=== PATIENT | male | born 1965 | race Caucasian/White ===

== ENCOUNTER 2020-03-07 22:38 | Inpatient (IN) | payer BC, SELFPAY ==
--- NOTE | ~2020-03-07 | XR_ITS ---
EXAMINATION: XR chest 2V EXAM DATE: 03/07/2020 23:13 INDICATION: Chest pain, symptoms 2 days. TECHNIQUE: Frontal and lateral projections of the chest obtained and reviewed. There is no prior eliza dy for comparison. FINDINGS: The lungs are clear. There are no pleural effusions. The cardiomediastinal silhouette is within normal limits. There is no pneumothorax suspected. The bones and soft tissues are unremarkab le. IMPRESSION: No acute cardiopulmonary findings. Reviewed, dictated and finalized at location G.
[2020-03-07 22:44] VITALS: BP 166/106; PULSE 87; RESP 16; TEMP 36.4; O2SAT 100
--- NOTE | 2020-03-07 22:48 | ECG_ITS ---
Measurements Intervals [place] Rate: 83 P: 47 NH: 160 QRS: 69 QRSD: 106 T: 93 QT: 372 QTc: 438 Interpretive Statements SINUS RHYTHM NONSPECIFIC ST & T-WAVE ABNORMALITY- DIFFUSE LEADS BASELINE ARTIFACT- I, II, III, AVR, AVF BORDERLINE ECG Electronically Signed On 03-08-2020 7:16:43 CDT by Pollo Bryan D.O.
[2020-03-07 22:50] VITALS: PULSE 76
--- NOTE | 2020-03-07 22:52 | ED.CHESTPAIN ---
HPI - Chest Pain General Chief Complaint: Chest Pain Stated Complaint: CP Time Seen by Provider: 03/07/20 22:41 History of Present Illness HPI narrative: 54 yo male w/ h/o HTN presents with chest pain. Intermittent for the past 2 days. No radiation. Feels sharp like someone sitting on your chest . No associated symptoms. May be slightly improved by upright position. He has had similar pain in the past after heavy lifting, and does report that he has been moving a lot for the past 2 days. He has not tried anything for his pain. Related Data Home Medications Medication Instructions Recorded Confirmed levocetirizine 5 mg tablet 5 mg PO DAILY 10/25/19 Allergies Allergy/AdvReac Type Severity Reaction Status Date / Time No Known Allergies Allergy Verified 03/07/20 22:53 Review of Systems Review of Systems: All systems reviewed & are unremarkable except as noted in HPI and below Constitutional: Constitutional: Denies chills and Denies fever(s) ENT: Denies dizziness Cardiovascular: Cardiovascular: Reports chest pain and Denies radiating jaw, neck or arm pain Respiratory: Respiratory: Denies dyspnea Gastrointestinal: Gastrointestinal: Denies abdominal pain and Denies nausea Musculoskeletal: Musculoskeletal: Denies back pain Neurologic: Denies dizziness, Denies focal weakness and Reports numbness (bilateral hands) PMFSH Past Medical History Medical History (Updated 03/08/20 @ 00:15 by Rickie Harp MD) HTN (hypertension) Family History Family History Mother Patient's mother is in good health Sibling Patient's sister is in good health Patient's brother is in good health Father Family history of Parkinson's disease Social History Social History Smoking status: Never smoker Second hand tobacco smoke exposure: No Alcohol intake: current Gender identity (if verbalized by the patient): Male Exam Const: General: healthy appearing, no acute distress and alert Nutritional Appearance: well nourished Orientation/consciousness: patient oriented x3 HENMT: Head: normal to inspection Chest: Chest palpation & inspection: normal inspection of the chest and no tenderness Resp: Effort & Inspection: normal respiratory effort Auscultation: clear to auscultation bilaterally Cardio: Rate: regular rate Rhythm: regular rhythm GI: Other: soft , NT Skin: General skin exam: normal color Neuro: General: patient oriented x3, moves all extremities, no focal motor deficits and CN's II-XI intact bilaterally Speech: normal speech Extrem: General: normal to inspection and no edema Course Consultations Consultation #1: Case discussed with Dr. Delacruz. SHe recommends nitropaste, heparin(already started), and admission to the hospitalist. Date: 03/08/20 Time: 00:09 Vital Signs Vital signs: Vital Signs Temperature 36.4 C 03/07/20 22:44 Pulse Rate 87 03/07/20 22:44 Respiratory Rate 16 03/07/20 22:44 Blood Pressure 166/106 H 03/07/20 22:44 Pulse Oximetry 100 03/07/20 22:44 Temperature 36.4 C 03/07/20 22:44 Pulse Rate 79 03/07/20 23:59 Respiratory Rate 16 03/07/20 22:44 Blood Pressure 166/106 H 03/07/20 22:44 Pulse Oximetry 100 03/07/20 22:44 MDM - Chest Pain Differential Diagnosis Differential diagnosis: Likely unstable angina pectoris, atypical chest pain, st elevation myocardial infarction and chest pain Medical Records Data Attestation: I reviewed the patient's medical records. Lab Data Attestation: I reviewed the patient's lab results. Result diagrams: 03/07/20 23:58 03/07/20 22:54 Labs: Lab Results 03/07/20 03/07/20 03/07/20 Range/Units 22:54 22:54 22:54 WBC 7.0 (4.5-10.0) K/mm3 RBC 5.35 (4.6-6.20) M/mm3 Hgb 15.7 (14.0-18.0) g/dL Hct 46.9 (42.0-52.0) % MCV 87.7 (80-100) fl [facility]
[2020-03-07] MEDS: NITROGLYCERIN SL 0.4 MG TABLET SUBLINGUAL (22:58)
[2020-03-07] MEDS: ASPIRIN 81 MG CHEWABLE TABLET 324 MG PO (22:58)
--- NOTE | 2020-03-07 23:01 | PC.NURSE ---
1st nitro given. hr 87 02 97 rr 19 bp 166/106 7/10 pps
[2020-03-07 23:05] LABS: Basophils Percent Auto 0.6 % (0.2-1.2); Eosinophils Absolute Auto 0.2 K/mm3 (0-0.3); Hematocrit 46.9 % (42.0-52.0); Hemoglobin 15.7 g/dL (14.0-18.0); Immature Granulocyte Absolute 0.03 K/mm3 (0.00-0.031); Immature Granulocyte Percent A 0.4 % (0-0.5); Lymphocytes Absolute Auto 2.52 K/mm3 (0.9-3.2); Lymphocytes Percent Auto 36.3 % (18.3-44.2); Mean Corpuscular HGB Conc 33.5 g/dl (32-36); Mean Corpuscular Hemoglobin 29.3 pg (26-34); Mean Corpuscular Volume 87.7 fl (80-100); Mean Platelet Volume 9.5 fl (7.4-10.4); Monocytes Absolute Auto 0.7 K/mm3 (0.1-0.6); Monocytes Percent Auto 10.6 % (2.6-8.5); Neutrophils Absolute Auto 3.4 K/mm3 (1.3-6.7); Neutrophils Percent Auto 49.1 % (45.5-73.1); Platelet Count Result 245 k/mm3 (150-375); Red Blood Count 5.35 M/mm3 (4.6-6.20); Red Cell Distribution Width 12.8 % (11.5-14.5)
--- NOTE | 2020-03-07 23:08 | PC.NURSE ---
could not give 2nd nitro patient in xray
[2020-03-07 23:14] LABS: Prothrombin Time 12.4 Seconds (11.1-14.7)
[2020-03-07 23:15] LABS: Partial Thromboplastin Time 34.2 SECONDS (22.3-36.8)
--- NOTE | 2020-03-07 23:15 | PC.NURSE ---
2nd nitro given hr 79 02 96 rr 15 bp 147/99 2 pps
[2020-03-07 23:17] LABS: Blood Urea Nitrogen 23 mg/dL (9-20); Calcium 9.3 mg/dL (8.4-10.2); Carbon Dioxide 24 mmol/L (22-30); Chloride 103 mmol/L (98-107); Estimated CRCL calculation 105 ml/min; Estimated Glomerular Filt Rate > 60; Glucose 203 mg/dL (75-110); Potassium 4.1 mmol/L (3.4-5.0); Sodium 138 mmol/L (137-145)
--- NOTE | 2020-03-07 23:31 | PC.NURSE ---
3rd Nitro given hr 83 o2 96 rr 17 bp 142/94 2/10 pps
[2020-03-07 23:33] LABS: Troponin I 0.321 ng/mL (0.000-0.034)
[2020-03-07 23:59] VITALS: PULSE 79
[2020-03-07] MEDS: HEPARIN SODIUM 5,000 UNITS/ML VIAL 4000 UNITS IV PUSH (23:59)
[2020-03-07] MEDS: METOPROLOL TARTRATE 50 MG TAB 25 MG PO (23:59)
[2020-03-08] VITALS (33 sets, daily range): BP systolic 95–151; BP diastolic 70–89; PULSE 12–102; RESP 13–97; TEMP 36.1–37.4; O2SAT 90–100; BMI 32.0
[2020-03-08 00:06] LABS: Basophils Percent Auto 0.5 % (0.2-1.2); Eosinophils Absolute Auto 0.2 K/mm3 (0-0.3); Eosinophils Percent Auto 3.1 % (0-4.4); Hematocrit 41.9 % (42.0-52.0); Hemoglobin 14.1 g/dL (14.0-18.0); Immature Granulocyte Absolute 0.02 K/mm3 (0.00-0.031); Immature Granulocyte Percent A 0.3 % (0-0.5); Lymphocytes Absolute Auto 1.53 K/mm3 (0.9-3.2); Lymphocytes Percent Auto 26.7 % (18.3-44.2); Mean Corpuscular HGB Conc 33.7 g/dl (32-36); Mean Corpuscular Hemoglobin 29.3 pg (26-34); Mean Corpuscular Volume 86.9 fl (80-100); Monocytes Absolute Auto 0.6 K/mm3 (0.1-0.6); Monocytes Percent Auto 10.5 % (2.6-8.5); Neutrophils Absolute Auto 3.4 K/mm3 (1.3-6.7); Neutrophils Percent Auto 58.9 % (45.5-73.1); Platelet Count Result 226 k/mm3 (150-375); Red Blood Count 4.82 M/mm3 (4.6-6.20); Red Cell Distribution Width 12.7 % (11.5-14.5); White Blood Count 5.7 K/mm3 (4.5-10.0)
[2020-03-08 00:16] LABS: Prothrombin Time 12.8 Seconds (11.1-14.7)
[2020-03-08 00:17] LABS: Partial Thromboplastin Time 35.4 SECONDS (22.3-36.8)
[2020-03-08] MEDS: NITROGLYCERIN OINTMENT 1 INCH DOSE TRANSDERM (00:28)
[2020-03-08] MEDS: HEPARIN SOD/D5W 100 UNITS/ML 25,000 UNITS/250 ML BAG 10 UNITS IV CONT (00:59)
--- NOTE | 2020-03-08 01:22 | ADMGEN ---
This patient, He Saha, was admitted to IMU Room 200-01. Patient/family oriented to hospital policies and general routines including ID bracelet, bed and alarms, visiting hours, pain management, procedures, bathroom and other care routines, personal items, smoking policy, room service/diet, and visiting hours. Valuables list has been completed. Information on how to activate the Rapid Response Team has been discussed. Patient/Family are encouraged to report perceived risks to care and to ask questions if they do not understand what they are told or what they should do.
--- NOTE | 2020-03-08 01:34 | ADMGEN ---
This patient, He Saha, was admitted to IMU Room 200-01FROM ER 03/08/20 01 0110. Patient/family oriented to hospital policies and general routines including ID bracelet, bed and alarms, visiting hours, pain management, procedures, bathroom and other care routines, personal items, smoking policy, room service/diet, and visiting hours. Valuables list has been completed. Information on how to activate the Rapid Response Team has been discussed. Patient/Family are encouraged to report perceived risks to care and to ask questions if they do not understand what they are told or what they should do.
[2020-03-08 02:43] LABS: Troponin I 0.628 ng/mL (0.000-0.034)
[2020-03-08 04:49] LABS: Basophils Percent Auto 0.5 % (0.2-1.2); Eosinophils Absolute Auto 0.2 K/mm3 (0-0.3); Eosinophils Percent Auto 3.7 % (0-4.4); Hematocrit 41.2 % (42.0-52.0); Hemoglobin 14.1 g/dL (14.0-18.0); Immature Granulocyte Absolute 0.01 K/mm3 (0.00-0.031); Immature Granulocyte Percent A 0.2 % (0-0.5); Lymphocytes Absolute Auto 2.14 K/mm3 (0.9-3.2); Lymphocytes Percent Auto 32.7 % (18.3-44.2); Mean Corpuscular HGB Conc 34.2 g/dl (32-36); Mean Corpuscular Hemoglobin 29.7 pg (26-34); Mean Corpuscular Volume 86.7 fl (80-100); Mean Platelet Volume 9.3 fl (7.4-10.4); Monocytes Absolute Auto 0.6 K/mm3 (0.1-0.6); Monocytes Percent Auto 9.6 % (2.6-8.5); Neutrophils Absolute Auto 3.5 K/mm3 (1.3-6.7); Neutrophils Percent Auto 53.3 % (45.5-73.1); Platelet Count Result 239 k/mm3 (150-375); Red Blood Count 4.75 M/mm3 (4.6-6.20); Red Cell Distribution Width 12.6 % (11.5-14.5); White Blood Count 6.5 K/mm3 (4.5-10.0)
[2020-03-08 04:58] LABS: Hemoglobin A1C 6.6 % (<5.7)
[2020-03-08 05:17] LABS: Troponin I 0.801 ng/mL (0.000-0.034)
[2020-03-08 07:39] LABS: Partial Thromboplastin Time 42.1 SECONDS (22.3-36.8)
[2020-03-08] MEDS: HEPARIN SODIUM 5,000 UNITS/ML VIAL 4000 UNITS IV PUSH (07:55)
--- NOTE | 2020-03-08 08:40 | WPDCN ---
Assessment and Plan Assessment and plan (1) Non-ST elevation SD (NSTEMI): Code(s): I21.4 - Non-ST elevation (NSTEMI) myocardial infarction Status: Acute Assessment and Plan: Patient presents with a history, labs and EKG consistent with ACS/non-STEMI. He is at risk for future cardiovascular events including SD. Reviewed the situation with the patient, high risk of progression to SD etcetera, and discussed options including cardiac catheterization with possible PCI with the patient. Cardiac catheterization with possible PCI today. Reviewed possible risks and complications with patient including breathing problems, bleeding problems, blood vessel problems, unanticipated surgery, allergic reactions, kidney problems, CVA, SD, and among others. Discussed possibility of stenting and possible need for DAPT. Discussed the possibility that if DAPT is interrupted stent thrombosis can occur resulting in heart attack and . Patient understands risks and desires to proceed. (2) HTN (hypertension): Qualifiers: Hypertension type: essential hypertension Qualified Code(s): I10 - Essential (primary) hypertension Code(s): I10 - Essential (primary) hypertension Status: Acute Assessment and Plan: Takes losartan at home, appears controlled (3) Hyperlipidemia: Qualifiers: Hyperlipidemia type: unspecified Qualified Code(s): E78.5 - Hyperlipidemia, unspecified Code(s): E78.5 - Hyperlipidemia, unspecified Status: Acute Assessment and Plan: Taking gemfibrozil. Will check lipids Change to high-dose statin therapy, atorvastatin 40 mg daily (4) Pre-diabetes: Code(s): R73.03 - Prediabetes Status: Acute Assessment and Plan: Blood sugar greater than 200 check A1c HPI Data of Consult Date/Time: 03/08/20 08:40 Requesting Physician: Francie Naranjo DO Primary Care Provider: Shay Stout DO Consult Narrative Narrative: Date of service: 03/08/2020 He Saha is a 54 year old male with a history of hypertension, hyperlipidemia and prediabetes who was admitted with chest discomfort and found to have acute coronary syndrome, whom we were asked to see at the request of Dr. Naranjo for advice and opinion regarding these issues. The patient started having problems 2 days ago. He has been cleaning out his mother and father's house, moving a lot of boxes and furniture and he He had pressure and pain across his chest which would be relieved with sitting and resting. Last night at 10 p.m. he woke up from sleep with pressure and pain, numbness down both arms in sweats. It lasted for about 20 minutes, then eased up and waxed and waned. He came to the emergency room and the discomfort was relieved after TNG x3, nitro paste and being started on a heparin drip. His EKG showed some ST depression of 0.5-1 mm in V3 through V6 and his troponins have reached 0.8. He has had no further chest discomfort. Had some GERD but no bleeding problems or ulcers. Review of Systems Constitutional: Constitutional: Denies weakness Eyes: Eyes: Denies blurry vision ENT: Reports Normal hearing present and Denies epistaxis Cardiovascular: Cardiovascular: Reports chest pain, Reports diaphoresis, Denies lightheadedness and Denies palpitations Respiratory: Respiratory: Denies chest congestion and Denies dyspnea Gastrointestinal: Gastrointestinal: Reports abdominal pain (Infreq GERD), Denies melena, Denies hematochezia and Denies hematemesis Genitourinary: Genitourinary: Denies hematuria Musculoskeletal: Musculoskeletal: Denies back pain and Denies arthralgias Neurologic: Denies confusion and Denies headache(s) Psychiatric: Psychiatric: Denies confusion PMFSH Past Medical History Medical History (Updated 03/08
[2020-03-08] MEDS: ACETAMINOPHEN 325 MG TABLET 650 MG PO ×2 (09:04→19:51)
--- NOTE | 2020-03-08 10:19 | PM.IMHP ---
H&P: HPI History of Present Illness Chief complaint: CP Narrative: Date and Time of History & Physical: March 08, 2020 at 10:00 a.m.. Date and Time of Admission Order: March 08, 2020 at 9:54 a.m.. Chief Complaint: Bilateral chest pain History of Present Illness: He Saha is a 54 year old male with known hypertension, hyperlipidemia, pre diabetes and allergies who presents to the emergency room with at least 2 day history of bilateral upper chest pain. Patient reports he was having episodes of bilateral upper chest pain lasting 2-3 minutes and relieved with rest. He reports pain feeling like pressure followed by dullness. No radiation of pain until last night when he had radiation of pain to both arms. He reports no associated shortness of breath but he did have diaphoresis lasting approximately 20 seconds. No recent fever, chills or sweats. No recent cough. No headache or dizziness. No nausea, vomiting or abdominal pain. No previous history of cardiac issues. Patient does report he has been moving things this past week and initially thought pain was result of this. With continued symptoms, he did present to the emergency room with troponin levels noted to be elevated. Cardiology consulted with patient admitted for further evaluation and treatment. Review of Systems Review of Systems: All systems reviewed & are unremarkable except as noted in HPI and below Constitutional: Constitutional: Denies body ache(s), Denies chills and Denies fever(s) Eyes: Eyes: Denies blurry vision and Denies diplopia ENT: Denies dysphagia and Reports nasal discharge Cardiovascular: Cardiovascular: Reports chest pain, Denies lightheadedness and Denies palpitations Respiratory: Respiratory: Denies dyspnea Gastrointestinal: Gastrointestinal: Denies abdominal pain, Denies nausea and Denies vomiting Genitourinary: Genitourinary: Denies hematuria, Denies dysuria and Denies urinary frequency Musculoskeletal: Musculoskeletal: Denies back pain Integumentary/Breasts: Skin/Breast: Denies rash Neurologic: Denies headache(s) and Denies numbness Psychiatric: Psychiatric: Denies anxiety, Denies confusion and Denies depression Endocrine: Endocrine: Reports no additional endocrine complaints Hematologic/Lymphatic: Hematologic/Lymphatic: Reports no additional hematologic/lymphatic complaints Allergic/Immunologic: Allergic/Immunologic: Reports no additional allergic/immunologic complaints [facility] Past Medical History Medical History (Updated 03/08/20 @ 10:38 by Juani Angulo MD) Allergic rhinitis HTN (hypertension) Hyperlipidemia Pre-diabetes Surgical History Surgical History S/P appendectomy S/P right rotator cuff repair Family History Family History Mother , Per patient, of old age No problems noted. Sibling Patient's brother is in good health Patient's sister is in good health Father Parkinson disease Social History Social History Social History: Patient is . He lives with his . 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 Nonsmoker. Occasional alcohol use. He is a full code. He does not need his as his surrogate decision maker. He does have 1 daughter. 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
--- NOTE | 2020-03-08 10:20 | PC.NURSE ---
Patient to cardiac cardiac catheterization technician.
--- NOTE | 2020-03-08 12:15 | WPDMODSED ---
Moderate Sedation Note-Pt Data Patient Data Allergies Allergy/AdvReac Type Severity Reaction Status Date / Time No Known Allergies Allergy Verified 03/07/20 22:53 Home Medications Medication Instructions Recorded Confirmed Type levocetirizine 5 mg tablet 5 mg PO DAILY 10/25/19 03/08/20 History losartan 100 mg tablet 100 mg PO DAILY #90 tablet 11/23/19 03/08/20 Rx gemfibrozil 600 mg tablet 600 mg PO BID #180 tablet 01/02/20 03/08/20 Rx Current Medications: Active Medications Acetaminophen (Tylenol Tablet) 650 mg PO Q6H PRN PRN Reason: Mild Pain (1-3) or Fever Last Admin: 03/08/20 09:04 Dose: 650 mg Documented by: Atorvastatin Calcium (Lipitor) 40 mg PO DAILY IDRIS Dextrose (Dextrose 50% Syringe) 12.5 gm IV PUSH PRN PRN; Protocol PRN Reason: Hypoglycemia Glucagon (Glucagon For Inj) 1 mg IM PRN PRN; Protocol PRN Reason: Hypoglycemia Glucose (Glutose 15) 15 gm PO PRN PRN; Protocol PRN Reason: Hypoglycemia Heparin Sodium (Porcine) (Heparin Sodium) 4,000 units IV PUSH PRN PRN PRN Reason: aPTT less than 55 seconds Last Admin: 03/08/20 07:55 Dose: 4,000 units Documented by: Heparin Sodium (Porcine) (Heparin Sodium) 4,000 units IV PUSH PRN PRN PRN Reason: aPTT 55 - 70 seconds Heparin Sodium/Dextrose (Heparin Sodium/D5w 100 Units/Ml) 25,000 units in 250 mls @ 0 mls/hr IV CONT .Q0M IDRIS; Protocol Last Titration: 03/08/20 10:04 Dose: 0 units/hr, 0 mls/hr Documented by: Dextrose (Dextrose 5% 1,000 Ml) 1,000 mls @ 100 mls/hr IVPB PRN PRN; Protocol PRN Reason: Hypoglycemia Insulin Aspart (Novolog) 2 - 5 units SUB-Q TIDWM IDRIS; Protocol Loratadine (Claritin) 10 mg PO DAILY IDRIS Losartan Potassium (Cozaar) 100 mg PO DAILY [facility] Sedation/Anesthesia: No previous sedation/anesthesia problems (including family history). [facility] Past Medical History Medical History Allergic rhinitis GERD (gastroesophageal reflux disease) HTN (hypertension) Hyperlipidemia Kidney stone Pre-diabetes Surgical History Surgical History S/P appendectomy S/P right rotator cuff repair Family History Family History Mother , Per patient, of old age No problems noted. Sibling Patient's brother is in good health Patient's sister is in good health Father Parkinson disease Social History Social History Social History: Patient is . He lives with his . 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 Nonsmoker. Occasional alcohol use. He is a full code. He does not need his as his surrogate decision maker. He does have 1 daughter. 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 Gender identity (if verbalized by the patient): Male Spiritual care concerns: No Agree to blood products: Yes Mod Sed Physical Exam Physical Exam Pre Procedural Exam: Normal: Appearance, Eyes, Ears, Nose, Neck, Throat, Airway, Lungs, Heart Size, Heart Rate, Heart Rhythm, Neuro Exam, Abdomen, Liver, Kidneys, Spleen, Breasts, Genitalia, Extremities and Skin Hours since solid foods: 8 Hours since liquid intake: 8 Internal Medicine - PN: Obj Da Vital Signs Vital Signs: Vital Signs - 24 hr 03/07/20 22:44 03/07/20 22:50 03/07/20 23:59 Temperature 36.4 C Pulse Rate 87 76 79 Respiratory Rate 16 Blood Pressure 166/106 H Pulse Oximetry 100 03/08/20 00:37 03/08/20 01:10 03/08/20 01:45 Temperature 36.4 C Pulse Rate 78 75 70 Respiratory Rate 17 20 Blood Pressure 130/87 120/83 Pulse Oximetry 98 99 03/08/20 01:48 03/08/20 03:38 03/08/20 04:00
--- NOTE | 2020-03-08 12:15 | WPDCARDPROC ---
Cardiac Cath Procedure Note Date of procedure:: 03/08/20 Performing physician:: John Alexandre MD date of service: March 08, 2020 Indication:: NSTEMI Brief clinical history:: This is 54-year-old patient with past medical history of obesity, hypertension, hyperlipidemia, prediabetes who presents the hospital with chest pain and was found to have elevated troponins. Was brought into the optical laboratory mechanic to define coronary anatomy. Procedure Procedure performed:: 1-Moderate sedation that started at 10:45 a.m. and ended at 12:05 p.m. total duration 80 minutesusing 3mg of Versed and 75mcg fentanyl. The registered nurse was pat chartrand. 2-Selective left and right coronary angiogram. 3-Left heart catheterization with measurement of LVEDP and measurement of gradient across aortic valve. 4-Right common femoral arterial angiogram. 5- deployment with drug-eluting stent Xience 3.5 x 33 to proximal large OM1 branch reducing stenosis from 99% to 0% and DAVID flow 3 before and after intervention. 6- Deployment of drug-eluting stent 3 x 28 Xience Annie to mid left circumflex artery dressing stenosis from 80% to 0% and DAVID flow 3 before and after intervention. Sedation/Medication given:: Moderate sedation. Access site:: Right common femoral artery. Estimated blood loss:: 10cc Procedure note:: After informed consent patient was brought in to optical laboratory mechanic with the was draped and prepped in usual manner. Moderate sedation was given and the right groin was infiltrated using 1% lidocaine. Five Bangladeshi sheath was obtained using micropuncture needle and the modified Seldinger technique. Selective left coronary angiogram was done using JL4 catheter with the tip of the catheter placed in the left main coronary artery. Selective right coronary angiogram was done using JR4 catheter with the tip of the catheter placed to the right coronary artery. After that 5 Bangladeshi pigtail catheter was advanced across the aortic valve into the left ventricle with measurement of LVEDP and measurement of gradient across aortic valve. Right common femoral arterial angiogram was done. subsequently the 5 Bangladeshi right femoral arterial sheath was exchanged for 6 Bangladeshi sheath over wire. Coronary luge wire 0.04 wire was advanced to distal OM 1 branch. Balloon angioplasty was done using 3 x 20 balloon with inflation under normal pressure for 20 seconds with 2 inflations done. Then after that deploy a drug-eluting stent Xience Annie 3.5 x 33 to proximal and mid left OM branch under nominal pressure for 25 seconds. Post dilatation over the stent was done using 3.5 x 15 noncompliant balloon with inflation under 16 atmospheres in the proximal portion for 25 seconds and inflations at 12 atmospheres in the mid segment for 25 seconds. then after that the coronary luge wire was retrieved and advanced to distal left circumflex artery. Balloon angioplasty of the mid segment was done using 3 by 20 balloon with inflation done and a normal pressure for 20 seconds. Two inflations. Deploy a drug-eluting stent Xience Annie 3 x 28 under normal pressure for 25 seconds. Findings:: 1- left coronary artery is a large artery that divides into large LAD, large circumflex artery. Left main is Free of disease. 2- left anterior descending artery is a large artery that runs and wraps around the apex. has minimal irregularities. Gives rise to a medium-sized diagonal 1 branch and a medium-sized diagonal 2 branch that both have ostial 20% stenosis. 3- left circumflex artery is a large artery. Has minimal irregularities proximally and then in the mid segment has about 70% stenosis. Gives off a large OM1 branch proximally that has mid 99% stenosis. 4- right coronary artery is Large artery and dominant and has minimal irregularities. 5- LVEDP was 18 mm Hgand no gradient across aortic valve. 6- opening arterial pressure was 100/72and closing pressure was 124/75 7- right femoral artery angiogram shows no significant disease in the right common
--- NOTE | 2020-03-08 13:07 | ECG_ITS ---
Measurements Intervals [place] Rate: 74 P: 24 AR: 170 QRS: 68 QRSD: 102 T: 94 QT: 407 QTc: 453 Interpretive Statements SINUS RHYTHM NONSPECIFIC ST & T-WAVE ABNORMALITY- ANTEROLAT/LAT LEADS BORDERLINE ECG Electronically Signed On 03-08-2020 13:24:49 CDT by Pollo Bryan D.O.
--- NOTE | 2020-03-08 14:45 | SUR.PHASEII ---
03/08/20:1445: PATIENT GIVEN 1 LITER OF NS AT 125ML/HR POST PROCEDURE.
--- NOTE | 2020-03-08 14:46 | SUR.PHASEII ---
03/08/20:1447: PATIENT VAGALED DURING SHEATH REMOVAL/MANUAL PRESSURE HOLD. PATIENT WAS DIAPHORETIC, PALE, LIGHTHEADED, BLOOD PRESSURE DECREASED. HEART RATE MAINTAINED. PATIENT WAS PLACED IN [place], FLUIDS WIDE OPEN, COOL CLOTHS UNTIL PATIENT RECOVERED.
--- NOTE | 2020-03-08 16:20 | PC.NURSE ---
patient returned to room following cardiac cath.
[2020-03-08 17:41] LABS: Glucose Point of Care 122 (65-105)
[2020-03-08] MEDS: LOSARTAN POTASSIUM 100 MG TABLET PO (18:11)
[2020-03-08] MEDS: LORATADINE 10 MG TABLET PO (18:12)
[2020-03-08] MEDS: ATORVASTATIN 40 MG TABLET PO (18:12)
[2020-03-08 18:22] LABS: Partial Thromboplastin Time 35.7 SECONDS (22.3-36.8)
[2020-03-08 21:18] LABS: Glucose Point of Care 136 (65-105)
[2020-03-08] MEDS: TICAGRELOR 90 MG TABLET PO (21:41)
[2020-03-09] VITALS: BP 142/87; PULSE 68; PULSE 83; RESP 18; TEMP 36.6; O2SAT 98
[2020-03-09 02:00] VITALS: PULSE 68
[2020-03-09 04:00] VITALS: BP 141/85; PULSE 66; PULSE 80; RESP 18; TEMP 37.1; O2SAT 99
[2020-03-09 05:01] LABS: Blood Urea Nitrogen 14 mg/dL (9-20); Calcium 8.8 mg/dL (8.4-10.2); Carbon Dioxide 25 mmol/L (22-30); Chloride 104 mmol/L (98-107); Cholesterol 222 mg/dL (0-200); Estimated CRCL calculation 95 ml/min; Estimated Glomerular Filt Rate > 60; Glucose 131 mg/dL (75-110); HDL Direct 50 mg/dL; Potassium 3.9 mmol/L (3.4-5.0); Sodium 137 mmol/L (137-145); Triglycerides 133 mg/dL (<150)
[2020-03-09 05:07] LABS: LDL Cholesterol Direct 142 mg/dL
[2020-03-09 05:57] VITALS: PULSE 90
[2020-03-09 06:02] LABS: Glucose Point of Care 129 (65-105)
[2020-03-09 08:00] VITALS: BP 142/92; PULSE 80; PULSE 82; RESP 16; TEMP 36.2; O2SAT 98
--- NOTE | 2020-03-09 09:08 | PM.PNCARD ---
Progress Note: A&P Assessment and Plan (1) Non-ST elevation [place] (NSTEMI): Code(s): I21.4 - Non-ST elevation (NSTEMI) myocardial infarction Status: Acute Assessment and Plan: Presented with a history, labs and EKG consistent with ACS/non-STEMI. Cardiac catheterization 03/08/2020:left coronary artery is a large artery that divides into large LAD, large circumflex artery. Left main is Free of disease. Lleft anterior descending artery is a large artery that runs and wraps around the apex with minimal irregularities. Gives rise to a medium-sized diagonal 1 branch and a medium-sized diagonal 2 branch that both have ostial 20% stenosis. Left circumflex artery is a large artery. Has minimal irregularities proximally and then in the mid segment has about 70% stenosis. Gives off a large OM1 branch proximally that has mid 99% stenosis. Right coronary artery is a large artery and dominant and has minimal irregularities. LVEDP was 18 mm Hg and no gradient across aortic valve. He proceeded on to intervention with drug-eluting stent Xience 3.5 x 33 to proximal large OM1 branch reducing stenosis from 99% to 0% and DAVID flow 3 before and after intervention. Deployment of drug-eluting stent 3 x 28 Xience Annie to mid left circumflex artery dressing stenosis from 80% to 0% and DAVID flow 3 before and after intervention. Denies chest discomfort or shortness of breath. Right groin site without swelling or bleeding. No femoral bruit. Distal pulses intact. Guideline directed therapy including aspirin, atorvastatin, Brilinta, losartan and will add Toprol XL 25 mg daily. Discontinue gemfibrozil. Blood pressure and blood sugar control will be managed by Dr. Stout. (2) HTN (hypertension): Qualifiers: Hypertension type: essential hypertension Qualified Code(s): I10 - Essential (primary) hypertension Code(s): I10 - Essential (primary) hypertension Status: Acute Assessment and Plan: Takes losartan 100 mg daily. Blood pressure elevated. Will add Toprol XL 25 mg daily. Further management of blood pressure per Dr. Stout (3) Hyperlipidemia: Qualifiers: Hyperlipidemia type: unspecified Qualified Code(s): E78.5 - Hyperlipidemia, unspecified Code(s): E78.5 - Hyperlipidemia, unspecified Status: Acute Assessment and Plan: Taking gemfibrozil. Change to high-dose statin therapy, atorvastatin 40 mg daily. LDL 142. Target LDL is less than 70. (4) Pre-diabetes: Code(s): R73.03 - Prediabetes Status: Acute Assessment and Plan: Blood sugar greater than 200 Hemoglobin A1c 6.6 Management per hospitalist. Further management per Dr. Stout Additional Plan OK to discharge from cardiac standpoint See discharge instructions for follow-up. May return to work on Thursday, March 19, 2020 with no restrictions. Plan discussed with Dr. Pickens [id number] 03/09/2020 Subjective Date/time seen: 03/09/20 09:08 Interval history: Follow-up for: Acute coronary syndrome/non ST-elevation myocardial infarction status post intervention to the obtuse marginal and circumflex, hypertension hyperlipidemia Date of service: 03/09/2020 Subjective: Denied chest discomfort, shortness of breath, lightheadedness or palpitations. Review of Systems Constitutional: Constitutional: Denies headache(s) and Denies weakness Eyes: Eyes: Denies blurry vision ENT: Reports Normal hearing present, Denies headache(s) and Denies epistaxis Cardiovascular: Cardiovascular: Denies chest pain, Denies diaphoresis, Denies lightheadedness, Denies palpitations and Denies dyspnea Respiratory: Respiratory: Denies chest congestion and Denies dyspnea Gastrointestinal: Gastrointestinal: Denies abdominal pain, Denies melena, Denies hematochezia and Denies hematemesis Genitou
--- NOTE | 2020-03-09 10:04 | PM.IMPN ---
Progress Note: A&P Assessment and Plan (1) Non-ST elevation [place] (NSTEMI): Code(s): I21.4 - Non-ST elevation (NSTEMI) myocardial infarction Status: Acute Assessment and Plan: Cardiology consulted and appreciate input. EKG with ST depression in leads V3 through V6. Serial troponin levels elevated and increasing with peak at 0.801. CAD cardiac catheterization yesterday morning with 99% stenosis in large OM 1 branch segment. Both stented. Now on Brilinta along with ASA, atorvastatin. Metoprolol succinate ER discharge home. Discussed with Cardiology. Will discharge home today. (2) CAD (coronary artery disease): Qualifiers: Associated angina: with unspecified angina Coronary Disease-Associated Artery/Lesion type: [place] artery [place] vs. transplanted heart: [place] heart Qualified Code(s): I25.119 - Atherosclerotic heart disease of [place] coronary artery with unspecified angina pectoris Code(s): I25.10 - Atherosclerotic heart disease of [place] coronary artery without angina pectoris Status: Acute (3) Pre-diabetes: Code(s): R73.03 - Prediabetes Status: Acute Assessment and Plan: Hemoglobin A1C 6.6 Glucose reviewed on 03/09/2020 with mild elevation on admission but now in acceptable range. Will need to follow diabetic diet at home and follow-up with primary physician. (4) HTN (hypertension): Qualifiers: Hypertension type: essential hypertension Qualified Code(s): I10 - Essential (primary) hypertension Code(s): I10 - Essential (primary) hypertension Status: Acute Assessment and Plan: Blood pressure reviewed on 03/09/2020 with mild elevation. Home losartan continued. Low-dose metoprolol succinate added per Cardiology. Will need to follow as outpatient. (5) Hyperlipidemia: Qualifiers: Hyperlipidemia type: unspecified Qualified Code(s): E78.5 - Hyperlipidemia, unspecified Code(s): E78.5 - Hyperlipidemia, unspecified Status: Acute Assessment and Plan: Home gemfibrozil held on admission. Total cholesterol 222 with LDL 142, HDL 50 and triglycerides 133. Now on atorvastatin. (6) DVT prophylaxis: Code(s): Z29.9 - Encounter for prophylactic measures, unspecified Status: Acute Assessment and Plan: Heparin initiated on presentation but stopped for cardiac catheterization. Time Spent With Patient Time with patient: 15 - 25 minutes Subjective Date/time seen: 03/09/20 10:04 Interval history: Date of Service: 03/09/2020. Admitted with chest pain and found to have CAD with stents placed. Doing well today. No chest pain or pressure. No shortness of breath. No abdominal pain. Review of Systems Constitutional: Constitutional: Denies chills and Denies fever(s) ENT: Denies dysphagia Cardiovascular: Cardiovascular: Denies chest pain and Denies palpitations Respiratory: Respiratory: Denies cough and Denies dyspnea Gastrointestinal: Gastrointestinal: Denies abdominal pain, Denies nausea and Denies vomiting Genitourinary: Genitourinary: Reports no additional male genitourinary complaints Musculoskeletal: Musculoskeletal: Reports no additional musculoskeletal complaints Integumentary/Breasts: Skin/Breast: Denies rash Neurologic: Denies headache(s) Psychiatric: Psychiatric: Denies anxiety and Denies depression Exam Narrative: Exam Narrative: Awake and alert. Const: General: no acute distress HENMT: Mouth: Yes moist mucous membranes Neck: Neck: supple Carotids: no bruits Lymphatic: lymphadenopathy not noted Resp: Auscultation: clear to auscultation bilaterally, no rales and no wheezes Cardio: Rate: regular rate Rhythm: regular rhythm Heart sounds: no murmurs GI: Inspection: non-distended GI Palp: Yes Soft to palpation and No Tenderness to palpation present (GI) Auscultation: normal bowel sounds Skin: General skin exam: normal color and no rashes or lesions noted Neur
[2020-03-09] MEDS: LORATADINE 10 MG TABLET PO (10:26)
[2020-03-09] MEDS: TICAGRELOR 90 MG TABLET PO (10:26)
[2020-03-09] MEDS: ASPIRIN 81 MG ENTERIC TABLET PO (10:26)
[2020-03-09] MEDS: LOSARTAN POTASSIUM 100 MG TABLET PO (10:26)
[2020-03-09] MEDS: ATORVASTATIN 40 MG TABLET PO (11:14)
--- NOTE | 2020-03-09 17:24 | PM.DS ---
DS: Diagnosis Admitting Diagnosis Admitting Diagnosis: Non-ST elevation (NSTEMI) myocardial infarction Discharge Diagnosis (1) Non-ST elevation [place] (NSTEMI): Code(s): I21.4 - Non-ST elevation (NSTEMI) myocardial infarction Status: Acute (2) CAD (coronary artery disease): Qualifiers: Associated angina: with unspecified angina Coronary Disease-Associated Artery/Lesion type: [place] artery [place] vs. transplanted heart: [place] heart Qualified Code(s): I25.119 - Atherosclerotic heart disease of [place] coronary artery with unspecified angina pectoris Code(s): I25.10 - Atherosclerotic heart disease of [place] coronary artery without angina pectoris Status: Acute (3) Pre-diabetes: Code(s): R73.03 - Prediabetes Status: Acute (4) HTN (hypertension): Qualifiers: Hypertension type: essential hypertension Qualified Code(s): I10 - Essential (primary) hypertension Code(s): I10 - Essential (primary) hypertension Status: Acute (5) Hyperlipidemia: Qualifiers: Hyperlipidemia type: unspecified Qualified Code(s): E78.5 - Hyperlipidemia, unspecified Code(s): E78.5 - Hyperlipidemia, unspecified Status: Acute DS: Summary Hospital Course Reason for hospitalization: Bilateral chest pain. Hospital Course: Date of Service of Discharge: March 09, 2020. History of Present Illness: Patient is a 54-year-old with known hypertension, hyperlipidemia, pre diabetes and allergies who presented to emergency room with a 2 day history of bilateral upper chest pain. Patient reports he was having episodes of bilateral upper chest pain lasting 2-3 minutes and relieved with rest. He reports pain as pressure-like followed by dullness. No radiation of pain until the night before presentation when he developed radiation of pain to both arms. He also reported shortness of breath with a 22nd episode of diaphoresis. No recent fever, chills or sweats. No recent cough. No headaches or dizziness. No nausea, vomiting or abdominal pain. No previous history of cardiac problems. He does mention he has recently been moving things this past week and initially thought pain was musculoskeletal. With continued symptoms, he presented to the emergency room. In the emergency room, troponin levels were noted to be elevated. Cardiology was consulted and patient was admitted for non STEMI. Course in Hospital: Patient was admitted to the IMU where he remained for the duration of his stay. Patient was monitored on telemetry with no acute changes seen. EKG did show ST depression in leads V3 through V6. Troponin levels did increase to a peak of 0.801. Cardiology was consulted and given his history and findings decision was made for cardiac catheterization. Patient was taken to the cardiac catheterization lab on 03/08/2020 with 99% stenosis in a large OM 1 branch segment of the left circumflex and 70% stenosis mid segment also of the left circumflex with both arteries stented. He was started on Brilinta, aspirin and atorvastatin. Home gemfibrozil was discontinued. He additionally was continued on home losartan. Metoprolol succinate ER was ordered to be started after discharge with blood pressure still remaining slightly elevated. Patient did well post procedure sugar and was monitored overnight. By 03/09/2020, patient remained pain free with no acute issues and felt ready to discharge per Cardiology. He was noted to have elevated glucose level on it admission but this was nonfasting. Hemoglobin A1c was 6.6. Further glucose levels were within normal range with patient maintained on a diabetic diet in addition to heart healthy diet. Patient was advised he would need to continue to follow glucose levels as an outpatient. With the patient improved and stable, he was able to discharge home on 03/09/2020. Status at Discharge Cognitive/behavioral status at discharge: Stable. Functional status at
== END 2020-03-09 11:29 | disposition home or self-care (01) | DRG 247 ==
LOC: ANHED 03-08 00:29 → ANHIMU 03-08 00:42
PROVIDERS: Internal Medicine Cardiovascular Disease; Admitting Provider Internal Medicine; Emergency Provider Emergency Medicine; PCP Internal Medicine; Visit Provider Hospitalist
PROC: 4A023N7 Measurement of Cardiac Sampling and Pressure, Left Heart, Percutaneous Approach (ICD-10-PCS; CPT 93452; principal; 2020-03-08 10:00)
PROC: 027135Z Dilation of Coronary Artery, Two Arteries with Two Drug-eluting Intraluminal Devices, Percutaneous Approach (ICD-10-PCS; CPT 92928; 2020-03-08 10:00)
PROC: 027135Z Dilation of Coronary Artery, Two Arteries with Two Drug-eluting Intraluminal Devices, Percutaneous Approach (ICD-10-PCS; 2020-03-08 10:00)
DX: I21.4 Non-ST elevation (NSTEMI) myocardial infarction (principal); I25.119 Atherosclerotic heart disease of native coronary artery with unspecified angina pectoris; R73.03 Prediabetes; I10 Essential (primary) hypertension; E78.5 Hyperlipidemia, unspecified; K21.9 Gastro-esophageal reflux disease without esophagitis; E66.9 Obesity, unspecified; Z68.31 Body mass index [BMI] 31.0-31.9, adult
CPT/HCPCS: 36415; 71046; 80048; 80061; 83036; 84484; 85025; 85610; 85730; 93005; 93458; 96365; 96366; 96374; 96376; 99291; A9270; C1725; C1769; C1874; C1887; C1894; C9600; C9601; G0378; J0583; J1644; J2250; J3010; J7040

== ENCOUNTER 2020-03-21 16:42 | Observation (INO) | payer BC, SELFPAY ==
[2020-03-21] VITALS (8 sets, daily range): BP systolic 119–160; BP diastolic 58–103; PULSE 72–98; RESP 20; TEMP 36.7–37.1; O2SAT 97–100; BMI 31.8; BMI 26.4
--- NOTE | ~2020-03-21 | XR_ITS ---
EXAMINATION: XR chest 2V EXAM DATE: 03/21/2020 17:27 INDICATION: Left-sided chest pain. 2 cardiac stents placed one-2 weeks ago. TECHNIQUE: Frontal and lateral projections of the chest obtained and reviewed. Comparison is made to prior examination from 03/05/2020. FINDINGS: The lungs are clear. There are no pleural effusions. The cardiomediastinal silhouette is within normal limits. There is no pneumothorax suspected. The bones and soft tissues are unremarkab le. IMPRESSION: No acute cardiopulmonary findings. Reviewed, dictated and finalized at location A.
--- NOTE | 2020-03-21 17:17 | ECG_ITS ---
Measurements Intervals [place] Rate: 89 P: 21 MI: 161 QRS: 44 QRSD: 103 T: 23 QT: 362 QTc: 442 Interpretive Statements SINUS RHYTHM NORMAL ECG Electronically Signed On 03-21-2020 18:20:00 CDT by Pollo Bryan D.O.
[2020-03-21 17:42] LABS: Basophils Absolute Auto 0.1 K/mm3 (0.0-0.1); Basophils Percent Auto 0.6 % (0.2-1.2); Eosinophils Absolute Auto 0.1 K/mm3 (0-0.3); Eosinophils Percent Auto 1.2 % (0-4.4); Hematocrit 42.6 % (42.0-52.0); Hemoglobin 14.7 g/dL (14.0-18.0); Immature Granulocyte Absolute 0.02 K/mm3 (0.00-0.031); Immature Granulocyte Percent A 0.2 % (0-0.5); Lymphocytes Absolute Auto 1.85 K/mm3 (0.9-3.2); Lymphocytes Percent Auto 21.9 % (18.3-44.2); Mean Corpuscular HGB Conc 34.5 g/dl (32-36); Mean Corpuscular Hemoglobin 29.7 pg (26-34); Mean Corpuscular Volume 86.1 fl (80-100); Monocytes Absolute Auto 0.7 K/mm3 (0.1-0.6); Monocytes Percent Auto 8.3 % (2.6-8.5); Neutrophils Absolute Auto 5.7 K/mm3 (1.3-6.7); Neutrophils Percent Auto 67.8 % (45.5-73.1); Platelet Count Result 314 k/mm3 (150-375); Red Blood Count 4.95 M/mm3 (4.6-6.20); Red Cell Distribution Width 12.5 % (11.5-14.5); White Blood Count 8.5 K/mm3 (4.5-10.0)
[2020-03-21 17:52] LABS: INR 1.1; Prothrombin Time 13.5 Seconds (11.1-14.7)
[2020-03-21 17:53] LABS: Partial Thromboplastin Time 32.6 SECONDS (22.3-36.8)
[2020-03-21 17:54] LABS: Potassium 3.6 mmol/L (3.4-5.0)
[2020-03-21 17:56] LABS: Blood Urea Nitrogen 20 mg/dL (9-20); Calcium 9.4 mg/dL (8.4-10.2); Carbon Dioxide 24 mmol/L (22-30); Chloride 106 mmol/L (98-107); Estimated CRCL calculation 96 ml/min; Estimated Glomerular Filt Rate > 60; Glucose 103 mg/dL (75-110); Sodium 139 mmol/L (137-145)
[2020-03-21 18:07] LABS: Troponin I < 0.012 ng/mL (0.000-0.034)
--- NOTE | 2020-03-21 18:07 | ED.CHESTPAIN ---
HPI - Chest Pain General Chief Complaint: Chest Pain Stated Complaint: chest pain Time Seen by Provider: 03/21/20 16:52 History of Present Illness HPI narrative: Patient is a 54-year-old male who presents ER with left-sided chest pain. Began yesterday at 7 PM. It persisted today and patient took a nitroglycerin which made his pain go away. The pain then came back and steadily increased. He reports is 3/10. Reports its annoying and pressure-like in nature. Not as intense as his IA that he had several weeks ago that required PCI. It radiates up into his left neck. No exertional component to this. Noted nausea/vomiting/sweats/dyspnea. He has been compliant with his Brilinta and aspirin. 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 Related Data Home Medications Medication Instructions Recorded Confirmed levocetirizine 5 mg tablet 5 mg PO DAILY 10/25/19 03/08/20 Allergies Allergy/AdvReac Type Severity Reaction Status Date / Time No Known Allergies Allergy Verified 03/14/20 08:52 Review of Systems Review of Systems: All systems reviewed & are unremarkable except as noted in HPI and below Constitutional: Constitutional: Denies chills, Denies fever(s) and Denies weakness ENT: Denies nasal congestion and Denies sore throat Cardiovascular: Cardiovascular: Reports chest pain, Denies rapid heart rate and Reports radiating jaw, neck or arm pain Respiratory: Respiratory: Denies cough, Denies dyspnea and Denies wheezing Gastrointestinal: Gastrointestinal: Denies nausea and Denies vomiting [facility] Past Medical History Medical History (Updated 03/21/20 @ 18:25 by Alphonso Smith MD) Allergic rhinitis CAD (coronary artery disease) GERD (gastroesophageal reflux disease) HTN (hypertension) Hyperlipidemia Kidney stone Non-ST elevation [place] (NSTEMI) Pre-diabetes Surgical History Surgical History (Updated 03/21/20 @ 18:09 by Alphonso Smith MD) S/P appendectomy S/P right rotator cuff repair Stented coronary artery Social History Social History Social History: Patient is . He lives with his . 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 Nonsmoker. Occasional alcohol use. He is a full code. He does not need his as his surrogate decision maker. He does have 1 daughter. 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 HEAD: Normocephalic, atraumatic. ENT: Mucous membranes moist. CHEST: Clear to auscultation. No respiratory distress. No reproducible chest wall tenderness HEART: Regular rate and rhythm. No murmur heard. Normal peripheral pulses. ABDOMEN: Soft, nontender, nondistended. EXTREMITIES: Normal range of motion. No edema. SKIN: Warm, dry, no rash. NEURO: Alert and oriented x3. PSYCH: Normal mood and affect. Course Course Emergency Course: Admit cardiology for observation after discussion with Dr. Smith. Also place half-inch Nitropaste this patient still having 3/10 pain Vital Signs Vital signs: Vital Signs Temperature 98.7 F 03/21/20 16:46 Pulse Rate 93 03/21/20 16:46 Respiratory Rate 03/21/20 16:46 Blood Pressure 160/99 H 03/21/20 16:46 Pulse Oximetry 99 03/21/20 16:46 Temperature 98.7 F 03/21/20 16:46 Pulse Rate 93 03/21/20 16:46 Respiratory Rate 03/21/20 16:46 Blood Pressure 160/99 H 03/21/20 16:46 Pulse Oximetry 99 03/21/20 16:46 MDM - Chest Pain Lab Data Result diagrams: 03/21/20 17:33 03/21/20 17:33 Labs: Lab Results 03/21/20 03/21/20 03/21/20 Range/
[2020-03-21] MEDS: NITROGLYCERIN OINTMENT 1 INCH DOSE 0.5 INCH TRANSDERM (18:44)
--- NOTE | 2020-03-21 20:20 | ADMGEN ---
This patient, He Saha, was admitted to IMU Room 201-01. Patient/family oriented to hospital policies and general routines including ID bracelet, bed and alarms, visiting hours, pain management, procedures, bathroom and other care routines, personal items, smoking policy, room service/diet, and visiting hours. Valuables list has been completed. Information on how to activate the Rapid Response Team has been discussed. Patient/Family are encouraged to report perceived risks to care and to ask questions if they do not understand what they are told or what they should do.
[2020-03-21 21:16] LABS: Troponin I < 0.012 ng/mL (0.000-0.034)
[2020-03-21 23:37] LABS: Troponin I < 0.012 ng/mL (0.000-0.034)
[2020-03-22] VITALS (9 sets, daily range): BP systolic 123–131; BP diastolic 54–84; PULSE 56–86; RESP 18–20; TEMP 35.8–36.6; O2SAT 97–100
[2020-03-22] MEDS: ACETAMINOPHEN 325 MG TABLET 650 MG PO (09:13)
[2020-03-22] MEDS: LOSARTAN POTASSIUM 100 MG TABLET PO (10:16)
[2020-03-22] MEDS: ASPIRIN 81 MG ENTERIC TABLET PO (10:16)
[2020-03-22] MEDS: ATORVASTATIN 40 MG TABLET PO (10:16)
[2020-03-22] MEDS: LORATADINE 10 MG TABLET PO (10:16)
[2020-03-22] MEDS: TICAGRELOR 90 MG TABLET PO (10:16)
[2020-03-22] MEDS: METOPROLOL SUCCINATE EXT REL 25 MG TABCR PO (10:16)
--- NOTE | 2020-03-22 11:22 | PM.IMHP ---
H&P: HPI History of Present Illness Chief complaint: chest pain Narrative: Date of service: 03/22/2020 1030 Cardiology Short-stay History and Physical Summary He Saha is a 54 year old male male with a past medical history significant for hypertension, dyslipidemia, probable diabetes mellitus who presented to the hospital with chest pain and elevated troponins 03/08/2020 subsequently brought to the cardiac catheterization lab where he was found to have 70-80% stenosis mid circumflex, large 1st obtuse marginal branch with a 99% stenosis for which he underwent a Xience drug-eluting stent 3.5 x 33 mm to the proximal 1st obtuse marginal branch and a Xience Annie drug-eluting stent 3.0 x 28 mm to the mid circumflex without complication. Patient did well and was discharged home the following day. 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 He states on Thursday and Thursday he worked quite hard physically at home return to work on Thursday but not a strenuous. He states Thursday evening around 7:00 p.m. at rest seated he noted onset of a somewhat uncomfortable tingling discomfort in his left chest radiating to his left neck. Approximately 5:00 a.m. the next morning his symptoms persisted prompting him to take 1 sublingual nitroglycerin. He states 20 minutes later the chest discomfort resolved for 30 minutes with the neck discomfort persisted. He went about his business during the day and states in fact more physical he became at work better he felt. He denied associated nausea, vomiting, diaphoresis or shortness of breath. He states he otherwise felt well and denied fatigue, dizziness or palpitations. He has been compliant with medications and in particular aspirin and Brilinta. He checked his blood pressure and noted it was quite elevated in given persistence of the symptoms became more concerned and presented to the ER evaluation. His EKG was normal without ischemic changes and serial troponins all negative. There is no response with nitroglycerin upon presentation and his symptoms eventually resolved spontaneously. He is currently pain-free and has no other concerns at this time. Blood pressure has also improved and he feels well and would like to be discharged home. He admits that the symptoms are different than his presentation in that he had bilateral arm discomfort fatigue and his chest discomfort was more bothersome. Review of Systems Review of Systems: All systems reviewed & are unremarkable except as noted in HPI and below Constitutional: Constitutional: Reports as per HPI and Reports no additional constitutional complaints Eyes: Eyes: Reports as per HPI and Reports no additional eye complaints ENT: Reports system reviewed and no additional complaints, except as documented and Reports as per HPI Cardiovascular: Cardiovascular: Reports as per HPI, Reports no additional cardiovascular complaints, Reports chest pain, Denies diaphoresis, Denies pedal edema, Denies leg edema, Denies lightheadedness and Denies palpitations Respiratory: Respiratory: Reports as per HPI, Reports no additional respiratory complaints, Denies cough, Denies dyspnea, Denies dyspnea on exertion and Denies wheezing Gastrointestinal: Gastrointestinal: Reports as per HPI, Reports no additional gastrointestinal complaints, Denies abdominal pain, Denies melena, Denies bloating, Denies hematochezia, Denies nausea, Denies vomiting and Denies hematemesis Genitourinary: Genitourinary: Reports no additional male genitourinary complaints, Reports as per HPI and Denies hematuria Musculoskeletal: Musculoskeletal: Reports no additional musculoskeletal complaints, Reports as per HPI, Denies back pain, Denies myalgias, Denies arthralgias, Denies joint swelling and Reports neck pain Integumentary/Breasts: Skin/Breast: Reports system reviewed and no additional complaints, except as docu, Reports as per HPI, Denies rash and
== END 2020-03-22 13:01 | disposition home or self-care (01) ==
LOC: ANHED 18:30 → ANHIMU 19:45
PROVIDERS: Admitting Provider Internal Medicine Cardiovascular Disease; Emergency Provider Emergency Medicine; PCP Internal Medicine; Visit Provider Internal Medicine Cardiovascular Disease
DX: I25.119 Atherosclerotic heart disease of native coronary artery with unspecified angina pectoris (principal); R07.9 Chest pain, unspecified; I25.2 Old myocardial infarction; K21.9 Gastro-esophageal reflux disease without esophagitis; I10 Essential (primary) hypertension; E78.5 Hyperlipidemia, unspecified; R73.03 Prediabetes; Z95.5 Presence of coronary angioplasty implant and graft
CPT/HCPCS: 36415; 71046; 80048; 84484; 85025; 85610; 85730; 93005; 99285; A9270; G0378

== ENCOUNTER 2023-05-25 23:41 | Emergency (ER) | payer BC, SELFPAY ==
--- NOTE | ~2023-05-25 | XR_ITS ---
Clinical Indication: Chest pain PA and lateral views of the chest: Comparison: 03/21/2020 Findings: The lungs are clear, without evidence of focal consolidation or pleural effusion. Cardiome diastinal silhouette is within normal limits. Bones and soft tissues are unremarkable. Impression: Normal chest. Reviewed, dictated and finalized at location . Impression: Normal chest.
--- NOTE | 2023-05-25 23:42 | ECG_ITS ---
Measurements Intervals [place] Rate: 64 P: 3 [place]: 134 QRS: 40 QRSD: 114 T: 27 QT: 390 QTc: 404 Interpretive Statements SINUS RHYTHM INTRAVENTRICULAR CONDUCTION DELAY BASELINE ARTIFACT- V6 BORDERLINE ECG COMPARED TO ECG 03/21/2020 16:51:30 INTRAVENTRICULAR CONDUCTION DELAY NOW PRESENT Electronically Signed On 05-26-2023 6:55:39 CDT by Pollo Bryan D.O.
[2023-05-25 23:48] VITALS: PULSE 64; RESP 16; O2SAT 98
[2023-05-25] MEDS: ASPIRIN 81 MG CHEWABLE TABLET 324 MG PO (23:48)
[2023-05-25 23:49] VITALS: BP 163/93; PULSE 69; RESP 16; O2SAT 99
[2023-05-25 23:53] VITALS: BP 164/94; PULSE 66; RESP 15; TEMP 36.8; O2SAT 100
[2023-05-25 23:56] LABS: Basophils Percent Auto 0.7 % (0.2-1.2); Eosinophils Absolute Auto 0.1 K/mm3 (0-0.3); Eosinophils Percent Auto 2.1 % (0-4.4); Hematocrit 43.9 % (42.0-52.0); Immature Granulocyte Absolute 0.01 K/mm3 (0.00-0.031); Immature Granulocyte Percent A 0.2 % (0-0.5); Lymphocytes Absolute Auto 2.13 K/mm3 (0.9-3.2); Lymphocytes Percent Auto 34.9 % (18.3-44.2); Mean Corpuscular HGB Conc 34.2 g/dl (32-36); Mean Corpuscular Hemoglobin 31.1 pg (26-34); Mean Corpuscular Volume 91.1 fl (80-100); Monocytes Absolute Auto 0.5 K/mm3 (0.1-0.6); Monocytes Percent Auto 8.7 % (2.6-8.5); Neutrophils Absolute Auto 3.3 K/mm3 (1.3-6.7); Neutrophils Percent Auto 53.4 % (45.5-73.1); Platelet Count Result 193 k/mm3 (150-375); Red Blood Count 4.82 M/mm3 (4.6-6.20); Red Cell Distribution Width 13.2 % (11.5-14.5); White Blood Count 6.1 K/mm3 (4.5-10.0)
[2023-05-26] VITALS (19 sets, daily range): BP systolic 126–171; BP diastolic 72–92; PULSE 60–88; RESP 14–17; O2SAT 94–100
[2023-05-26 00:06] LABS: Alanine Aminotransferase 30 U/L (6-50); Albumin Level 4.5 g/dL (3.5-5.1); Alkaline Phosphatase 75 U/L (38-126); Anion Gap 3 mmol/L (8-16); Aspartate Amino Transferase 31 U/L (17-59); Bilirubin,Total 0.5 mg/dL (0.2-1.3); Blood Urea Nitrogen 23 mg/dL (9-20); Calcium 9.4 mg/dL (8.4-10.2); Carbon Dioxide 30 mmol/L (22-30); Chloride 103 mmol/L (98-107); Estimated CRCL calculation 69 ml/min; Estimated Glomerular Filt Rate 57; Glucose 129 mg/dL (65-110); Lipase 85 U/L (23-300); Potassium 3.9 mmol/L (3.4-5.0); Prothrombin Time 13.2 Seconds (11.1-14.7); Sodium 136 mmol/L (137-145)
[2023-05-26 00:07] LABS: Partial Thromboplastin Time 31.2 SECONDS (22.3-36.8)
[2023-05-26 00:18] LABS: Troponin I < 0.012 ng/mL (0.000-0.034)
[2023-05-26] MEDS: NITROGLYCERIN SL 0.4 MG TABLET SUBLINGUAL (00:43)
--- NOTE | 2023-05-26 00:59 | ED.GENADULT ---
HPI - General Adult General Chief complaint: Chest Pain Stated complaint: chest pain Time Seen by Provider: 05/25/23 23:50 History of Present Illness HPI narrative: Patient 57-year-old gentleman who presents the emergency department with chief complaint of chest discomfort. Patient reports that today started having discomfort in his mid chest that radiated to his left arm patient reports he felt similar to whenever he had an NM several years ago and has stents placed. The patient reports that he takes daily aspirin reports that he has not had a stress test in some time patient reports that the pain is improved but he still has a mild amount of pain. Patient reports no shortness of breath denies diaphoresis did report that he had some tingling on the left arm with this. Related Data Home Medications Medication Instructions Recorded Confirmed rosuvastatin 10 mg tablet 10 mg PO DAILY 03/03/23 03/04/23 Allergies Allergy/AdvReac Type Severity Reaction Status Date / Time No Known Allergies Allergy Verified 05/25/23 23:52 Review of Systems Review of Systems: A 10 system review of systems was completed on the patient and is negative except for what is stated in the HPI. Nursing and ancillary documentation was reviewed. [facility] Past Medical History Medical History (Updated 05/26/23 @ 03:28 by Madhav Vera MD) Allergic rhinitis CAD (coronary artery disease) GERD (gastroesophageal reflux disease) HTN (hypertension) Hyperlipidemia Kidney stone Non-ST elevation [place] (NSTEMI) Pancreatitis Pre-diabetes Surgical History Surgical History S/P appendectomy S/P right rotator cuff repair Stented coronary artery Family History Family History Mother , Per patient, of old age No problems noted. Sibling Patient's brother is in good health Patient's sister is in good health Father Parkinson disease Social History Social History Social History: Patient is . He lives with his . 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 Nonsmoker. Occasional alcohol use. He is a full code. He does not need his as his surrogate decision maker. He does have 1 daughter. 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 HEAD: Normocephalic, atraumatic. EYES: PERRLA and EOMI. ENT: Nares clear, no rhinorrhea or epistaxis. Mucous membranes moist. NECK: Supple. CHEST: Clear to auscultation. No respiratory distress. HEART: Regular rate and rhythm. No murmur heard. Normal peripheral pulses. ABDOMEN: Soft, nontender, nondistended, normal active bowel sounds. EXTREMITIES: Normal range of motion. No edema. SKIN: Warm, dry, no rash. NEURO: No focal deficits. Alert and oriented x3. PSYCH: Normal mood and affect. Course Vital Signs Vital signs: Vital Signs Pulse Rate 64 05/25/23 23:48 Respiratory Rate 16 05/25/23 23:48 Pulse Oximetry 98 05/25/23 23:48 Temperature 36.8 C 05/25/23 23:53 Pulse Rate 66 05/26/23 03:54 Respiratory Rate 15
[2023-05-26 03:08] LABS: Troponin I < 0.012 ng/mL (0.000-0.034)
== END 2023-05-26 04:19 | disposition home or self-care (01) ==
PROVIDERS: Emergency Provider Emergency Medicine; PCP Internal Medicine
DX: I25.10 Atherosclerotic heart disease of native coronary artery without angina pectoris (principal); R07.9 Chest pain, unspecified; I10 Essential (primary) hypertension; E78.5 Hyperlipidemia, unspecified
CPT/HCPCS: 36415; 71046; 80053; 83690; 84484; 85025; 85610; 85730; 93005; 99284; A9270

== ENCOUNTER 2025-05-08 16:21 | Emergency (ER) | payer BC, SELFPAY ==
[2025-05-08] VITALS (11 sets, daily range): BP systolic 134–151; BP diastolic 79–98; PULSE 100–127; RESP 13–24; TEMP 36.5–37.1; O2SAT 96–100
--- NOTE | ~2025-05-08 | XR_ITS ---
CHEST RADIOGRAPH, PA AND LATERAL CLINICAL HISTORY: CP . COMPARISON: 05/25/2023 TECHNIQUE: PA and lateral views of the chest. FINDINGS The cardiomediastinal silhouette is unremarkable. The lungs are clear. IMPRESSION: No focal infiltrate or effusion. Reviewed, dictated and finalized at location A.
--- NOTE | 2025-05-08 16:22 | ECG_ITS ---
Test Date: 2025-05-08 16:26:18 Measurements Intervals [place] Rate: 125 P: 39 [place]: 160 QRS: 67 QRSD: 98 T: 45 QT: 324 QTc: 469 Interpretive Statements SINUS TACHYCARDIA ABNORMAL ECG No previous ECG available for comparison Electronically Signed On 05-08-2025 17:04:16 CDT by Pollo Bryan D.O.
[2025-05-08 16:40] LABS: Hematocrit 48.3 % (42.0-52.0); Hemoglobin 16.4 g/dL (14.0-18.0); Mean Corpuscular Hemoglobin 28.8 pg (26-34); Mean Corpuscular Volume 84.7 fl (80-100); Mean Platelet Volume 8.7 fl (7.4-10.4); Platelet Count Result 222 k/mm3 (150-375); Red Cell Distribution Width 13.4 % (11.5-14.5); White Blood Count 11.4 K/mm3 (4.5-10.0)
[2025-05-08 16:50] LABS: Alanine Aminotransferase 26 U/L (6-50); Albumin Level 4.6 g/dL (3.5-5.1); Alkaline Phosphatase 53 U/L (38-126); Anion Gap 12 mmol/L (4-12); Aspartate Amino Transferase 31 U/L (17-59); Blood Urea Nitrogen 22 mg/dL (9-20); Carbon Dioxide 23 mmol/L (22-30); Chloride 102 mmol/L (98-107); Estimated Glomerular Filt Rate > 60; Glucose 140 mg/dL (65-110); Lipase 25 U/L (23-300); Sodium 137 mmol/L (137-145)
[2025-05-08 16:57] LABS: Prothrombin Time 13.5 Seconds (11.1-14.7)
[2025-05-08 17:02] LABS: Troponin I < 0.012 ng/mL (0.000-0.034)
--- NOTE | 2025-05-08 17:13 | ED_ITS ---
HPI - Chest Pain General Chief Complaint: Chest Pain <ALETHEA Beck Last Filed: 05/08/25 17:14> Stated Complaint: CP <Shanna Monzon PA-C - Last Filed: 05/08/25 17:14> Time Seen by Provider: 05/08/25 19:50 <Shanna Monzon PA-C - Last Filed: 05/08/25 17:14> Focused HPI: 59-year-old male with history of hyperlipidemia, hypertension, CAD, mi, s/p 2 stent placements in 2019 presents to the emergency department for generalized malaise, headache, chest pain abdominal discomfort, nausea that started this morning. Patient states his was sick with a stomach bug several days ago. He denies any vomiting or diarrhea. Denies dysuria or hematuria. Denies fever. He does note that he removed a tick on his leg 5 days ago. He is uncertain how long the tick was attached but does not think it was very long. He denies any rashes. GENERAL: Well-appearing, well-nourished, and in no acute distress. HEAD: Normocephalic, atraumatic. CHEST: Clear to auscultation. ?No respiratory distress. HEART: Regular rate and rhythm.? NEURO: ?Alert and oriented x3. Patient screened in triage and initial orders placed.? ?Additional care and disposition to be based upon?diagnostic testing and treatment. <Shanna Monzon PA-C - Last Filed: 05/08/25 17:14> History of Present Illness HPI narrative: as per mse <Tess Clark III, - Last Filed: 05/08/25 21:38> Related Data Home Medications: Home Medications ?Medication ?Instructions ?Recorded ?Confirmed ?Last Taken ?Type rosuvastatin 10 mg tablet 10 mg PO DAILY 03/03/23 11/04/23 Unknown History <Shanna Monzon PA-C - Last Filed: 05/08/25 17:14> Allergies/Adverse Reactions: Allergies Allergy/AdvReac Type Severity Reaction Status Date / Time No Known Allergies Allergy Verified 11/04/23 11:29 <ALETHEA Beck Last Filed: 05/08/25 17:14> Review of Systems 2 Review of Systems: All systems reviewed & are unremarkable except as noted in HPI and below <Tess Clark III, DO - Last Filed: 05/08/25 21:38> [facility] Past Medical History Medical History: Medical History (Updated 05/08/25 @ 21:19 by Tess Clark III, DO) Pancreatitis CAD (coronary artery disease) Kidney stone GERD (gastroesophageal reflux disease) Allergic rhinitis Pre-diabetes Hyperlipidemia Non-ST elevation [place] (NSTEMI) HTN (hypertension) <Shanna Monzon PA-C - Last Filed: 05/08/25 17:14> Surgical History Surgical History: Surgical History Stented coronary artery S/P right rotator cuff repair S/P appendectomy <Shanna Monzon PA-C - Last Filed: 05/08/25 17:14> Family History Family History: Family History Mother , Per patient, of old age No problems noted. Sibling Patient's brother is in good health Patient's sister is in good health Father Parkinson disease <Shanna Monzon PA-C - Last Filed: 05/08/25 17:14> Social History Social History: Social History Social History: Patient is . He lives with his . 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 Nonsmoker. Occasional alcohol use. He is a full code. He does not need his as his surrogate decision maker. He does have 1 daughter. 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 Gender identity (if verbalized by the patient): Male Spiritual care concerns: No Agree to blood products: Yes <Shanna Monzon PA-C - Last Filed: 05/08/25 17:14> Exam 2 Const: General: healthy appearing and no acute distress <Tess Jer Clark III, DO - Last Filed: 05/08/25 21:38> Nutritional Appearance: well nourished <Tess Jer Clark III, DO - Last Filed: 05/08/25 21:38> Orientation/consciousness: patient oriented x3 <Tess Jer Clark III, DO - Last Filed: 05/08/25 21:38> Limitations: no limitations <Tess Jer Clark III, DO - Last Filed: 05/08/25 21:38> HENMT: Head: normal to inspection <Tess Jer Clark III, DO - Last Filed: 05/08/25 21:38> Eyes: EOM: EOMs intact bilaterally <Tess Jer Clark III, DO - Last Filed: 05/08/25 21:38> Neck: Neck: normal visual inspection and no lymphadenopathy <Tess Jer Clark III, DO - Last Filed: 05/08/25 21:38> Resp: Effort & Inspection: normal respiratory effort <Tess Jer Clark III, DO - Last Filed: 05/08/25 21:38> Auscultation: clear to auscultation bilaterally <Tess Jer Clark III, DO - Last Filed: 05/08/25 21:38> Cardio: Rate: regular rate <Tess Jer Clark III, DO - Last Filed: 05/08/25 21:38> Rhythm: regular rhythm <Tess Jer Clark III, DO - Last Filed: 05/08/25 21:38> GI: GI Palp: Yes Soft to palpation and No Tenderness to palpation present (GI) <Tess Jer Clark III, DO - Last Filed: 05/08/25 21:38> Auscultation: normal bowel sounds <Tess Jer Clark III, DO - Last Filed: 05/08/25 21:38> Skin: Other: small bite right mosqueda no erythema or target lesion no visible tick head <Tess Jer Clark III, DO - Last Filed: 05/08/25 21:38> Neuro: General: patient oriented x3, moves all extremities, no meningeal signs and no focal motor deficits <Tess Jer Clark III, DO - Last Filed: 05/08/25 21:38> Cranial nerves: Yes Nystagmus not present <Tess Jer Clark III, DO - Last Filed: 05/08/25 21:38> Speech: normal speech <Tess Jer Clark III, DO - Last Filed: 05/08/25 21:38> Extrem: General: normal to inspection and no clubbing, cyanosis or edema < Tess Jer Clark III, DO - Last Filed: 05/08/25 21:38> Psych: Mental Status: mental status grossly normal <Tess Jer Clark III, DO - Last Filed: 05/08/25 21:38> Affect: normal affect <Tess Jer Clark III, DO - Last Filed: 05/08/25 21:38> Attitude: cooperative <Tess Jer Clark III, DO - Last Filed: 05/08/25 21:38> Course Vital Signs Vital signs: Vital Signs Temperature 98.8 F 05/08/25 17:07 Pulse Rate 127 H 05/08/25 17:07 Respiratory Rate 05/08/25 17:07 Blood Pressure 134/79 05/08/25 17:07 Pulse Oximetry 99 05/08/25 17:07 Oxygen Delivery Room Air 05/08/25 17:07 Temperature 98.8 F 05/08/25 17:07 Pulse Rate 102 H 05/08/25 20:39 Respiratory Rate 20 05/08/25 17:07 Blood Pressure 134/79 05/08/25 17:07 Pulse Oximetry 97 05/08/25 20:38 Oxygen Delivery Room Air 05/08/25 20:38 <Shanna Monzon PA-C - Last Filed: 05/08/25 17:14> Vital Signs Temperature 98.8 F 05/08/25 17:07 Pulse Rate 127 H 05/08/25 17:07 Respiratory Rate 20 05/08/25 17:07 Blood Pressure 134/79 05/08/25 17:07 Pulse Oximetry 99 05/08/25 17:07 Oxygen Delivery Room Air 05/08/25 17:07 Temperature 98.8 F 05/08/25 17:07 Pulse Rate 102 H 05/08/25 20:39 Respiratory Rate 20 05/08/25 17:07 Blood Pressure 134/79 05/08/25 17:07 Pulse Oximetry 97 05/08/25 20:38 Oxygen Delivery Room Air 05/08/25 20:38 <Tess Jer Clark III, DO - Last Filed: 05/08/25 21:38> MDM - Chest Pain MDM Narrative Medical decision making narrative: Pt presents with nauea abdominal pain now resolved heartburn typ discomfort and pain across chest all starting this morning lasting severa hours and now mostly resolved. labs and ekg ordered at triage unremarkable. Pt has a bit of heartburn still so will give GI cocktail. both trop neg, ekg unremarkable labs normal. home on zofran and bentyl <Tess Randle Clark III, DO - Last Filed: 05/08/25 21:38> Lab Data Result diagrams: 05/08/25 16:30 05/08/25 16:30 <Shanna Monzon PA-C - Last Filed: 05/08/25 17:14> Labs: Lab Results 05/08/25 05/08/25 Range/Units 16:30 20:33 WBC 11.4 H (4.5-10.0) K/mm3 RBC 5.70 (4.6-6.20) M/mm3 Hgb 16.4 (14.0-18.0) g/dL Hct 48.3 (42.0-52.0) % MCV 84.7 (80-100) fl MCH 28.8 (26-34) pg MCHC 34.0 (32-36) g/dl RDW 13.4 (11.5-14.5) % Plt Count 222 (150-375) k/mm3 MPV 8.7 (7.4-10.4) fl Immature Gran % (Auto) Not Reportable Neut % (Auto) Not Reportable Lymph % (Auto) Not Reportable [place] % (Auto) Not Reportable Eos % (Auto) Not Reportable Baso % (Auto) Not Reportable Lymph # (Auto) Not Reportable [place] # (Auto) Not Reportable Eos # (Auto) Not Reportable Baso # (Auto) Not Reportable Abs Immat Gran (auto) Not Reportable Absolute Neuts (auto) Not Reportable Absolute Nucleated RBC Not Reportable Total Counted 100 Neutrophils % (Manual) 92 H (46-73) % Band Neutrophils % 4 (0-6) % Lymphocytes % (Manual) 2.0 L (18-44) % Monocytes % (Manual) 2 L (3-9) % Nucleated RBC % Not Reportable Abs Neuts (Manual) 10.94 H (1.3-6.7) K/mm3 Abs Lymphs (Manual) 0.22 L (1.1-4.5) K/mm3 Abs Monocytes (Manual) 0.22 (0.1-0.90) K/mm3 Platelet Estimate Adequate (Adequate) Schistocytes None seen PT 13.5 (11.1-14.7) Seconds INR 1.0 APTT 28.0 (22.3-36.8) Seconds D-Dimer 0.46 (<0.48) ug/mL Sodium 137 (137-145) mmol/L Potassium 4.0 (3.4-5.0) mmol/L Chloride 102 (98-107) mmol/L Carbon Dioxide 23 (22-30) mmol/L Anion Gap 12 (4-12) mmol/L BUN 22 H (9-20) mg/dL Creatinine 1.02 (0.7-1.3) mg/dL Estim Creat Clear Calc Not Reportable Estimated GFR > 60 (59 - ) Glucose 140 H (65-110) mg/dL Calcium 9.0 (8.4-10.2) mg/dL Total Bilirubin 1.0 (0.2-1.3) mg/dL AST 31 (17-59) U/L ALT 26 (6-50) U/L Alkaline Phosphatase 53 (38-126) U/L Troponin I < 0.012 < 0.012 (0.000-0.034) ng/mL NT-Pro-B Natriuret Pep 27 (19.9-100) pg/mL Total Protein 8.0 (6.3-8.2) g/dL Albumin 4.6 (3.5-5.1) g/dL Lipase 25 (23-300) U/L Influenza A (RT-PCR) Pending Influenza B (RT-PCR) Pending RSV (RT-PCR) Pending SARS-CoV-2 RNA (RT-PCR) Pending <Shanna Monzon PA-C - Last Filed: 05/08/25 17:14> Lab Results 05/08/25 05/08/25 Range/Units 16:30 20:33 WBC 11.4 H (4.5-10.0) K/mm3 RBC 5.70 (4.6-6.20) M/mm3 Hgb 16.4 (14.0-18.0) g/dL Hct 48.3 (42.0-52.0) % MCV 84.7 (80-100) fl MCH 28.8 (26-34) pg MCHC 34.0 (32-36) g/dl RDW 13.4 (11.5-14.5) % Plt Count 222 (150-375) k/mm3 MPV 8.7 (7.4-10.4) fl Immature Gran % (Auto) Not Reportable Neut % (Auto) Not Reportable Lymph % (Auto) Not Reportable [place] % (Auto) Not Reportable Eos % (Auto) Not Reportable Baso % (Auto) Not Reportable Lymph # (Auto) Not Reportable [place] # (Auto) Not Reportable Eos # (Auto) Not Reportable Baso # (Auto) Not Reportable Abs Immat Gran (auto) Not Reportable Absolute Neuts (auto) Not Reportable Absolute Nucleated RBC Not Reportable Total Counted 100 Neutrophils % (Manual) 92 H (46-73) % Band Neutrophils % 4 (0-6) % Lymphocytes % (Manual) 2.0 L (18-44) % Monocytes % (Manual) 2 L (3-9) % Nucleated RBC % Not Reportable Abs Neuts (Manual) 10.94 H (1.3-6.7) K/mm3 Abs Lymphs (Manual) 0.22 L (1.1-4.5) K/mm3 Abs Monocytes (Manual) 0.22 (0.1-0.90) K/mm3 Platelet Estimate Adequate (Adequate) Schistocytes None seen PT 13.5 (11.1-14.7) Seconds INR 1.0 APTT 28.0 (22.3-36.8) Seconds D-Dimer 0.46 (<0.48) ug/mL Sodium 137 (137-145) mmol/L Potassium 4.0 (3.4-5.0) mmol/L Chloride 102 (98-107) mmol/L Carbon Dioxide 23 (22-30) mmol/L Anion Gap 12 (4-12) mmol/L BUN 22 H (9-20) mg/dL Creatinine 1.02 (0.7-1.3) mg/dL Estim Creat Clear Calc Not Reportable Estimated GFR > 60 (59 - ) Glucose 140 H (65-110) mg/dL Calcium 9.0 (8.4-10.2) mg/dL Total Bilirubin 1.0 (0.2-1.3) mg/dL AST 31 (17-59) U/L ALT 26 (6-50) U/L Alkaline Phosphatase 53 (38-126) U/L Troponin I < 0.012 < 0.012 (0.000-0.034) ng/mL NT-Pro-B Natriuret Pep 27 (19.9-100) pg/mL Total Protein 8.0 (6.3-8.2) g/dL Albumin 4.6 (3.5-5.1) g/dL Lipase 25 (23-300) U/L Influenza A (RT-PCR) Pending Influenza B (RT-PCR) Pending RSV (RT-PCR) Pending SARS-CoV-2 RNA (RT-PCR) Pending <Tess Clark III, DO - Last Filed: 05/08/25 21:38> Discharge Plan Discharge Clinical Impression: Chest pain, Abdominal pain <Shanna Monzon PA-C - Last Filed: 05/08/25 17:14> Patient Disposition: Home <Shanna Monzon PA-C - Last Filed: 05/08/25 17:14> Condition: Improved <ALETHEA Beck Last Filed: 05/08/25 17:14> Instructions: Antibiotic Form, Chest Wall Pain (ED) <ALETHEA Beck Last Filed: 05/08/25 17:14> Patient Language: [place] Rican <Shanna Monzon PA-C - Last Filed: 05/08/25 17:14> Prescriptions: New ondansetron 4 mg tablet,disintegrating 4 mg PO Q8H Qty: 14 0RF dicyclomine 20 mg tablet 20 mg PO QID Qty: 14 0RF ondansetron 4 mg tablet,disintegrating 4 mg PO Q8H PRN (Reason: nausea and vomiting) Qty: 14 0RF dicyclomine 20 mg tablet 20 mg PO QID Qty: 14 0RF No Action rosuvastatin 10 mg tablet 10 mg PO DAILY aspirin 81 mg Tablet,Delayed Release (Dr/Ec) 81 mg PO QAM Qty: 30 12RF nitroglycerin 0.4 mg tablet, sublingual 0.4 mg SUBLINGUAL Q5M PRN (Reason: chest pain) Qty: 25 3RF Rx Instructions: do not exceed 3 doses per episode losartan 100 mg tablet 100 mg PO DAILY Qty: 90 1RF metoprolol succinate 25 mg tablet extended release 24 hr 25 mg PO DAILY Qty: 90 0RF <Shanna Monzon PA-C - Last Filed: 05/08/25 17:14> Follow-up/Referrals: Girish,Shay Garcia DO [Non-Staff] - <Shanna Monzon PA-C - Last Filed: 05/08/25 17:14> Quality HEART score for chest pain patients History: slightly suspicious <Tess Jer Clark III, DO - Last Filed: 05/08/25 21:38> ECG: normal <Tess Jer Clark III, DO - Last Filed: 05/08/25 21:38> Age: > 45 and < 65 years <Tess Jer Clark III, DO - Last Filed: 05/08/25 21:38> Risk factors: > or = to 3 risk factors of atherosclerotic disease <Tess Jer Clark III, DO - Last Filed: 05/08/25 21:38> Troponin: < or = to 1x normal limit <Tess Jer Clark III, DO - Last Filed: 05/08/25 21:38> Heart score: 3 <Tess Jer Clark III, DO - Last Filed: 05/08/25 21:38>
[2025-05-08 17:16] LABS: Band Neutrophils Percent 4 % (0-6); Lymphocytes Absolute Manual 0.22 K/mm3 (1.1-4.5); Monocytes Absolute Manual 0.22 K/mm3 (0.1-0.90); Monocytes Percent Manual 2 % (3-9); Neutrophils Absolute Manual 10.94 K/mm3 (1.3-6.7); Neutrophils Percent Manual 92 % (46-73); Platelet Estimate Adequate (Adequate); Total Cells Counted 100
[2025-05-08 17:17] LABS: Schistocytes None Seen
[2025-05-08 19:37] LABS: NT Pro B Type Natriuretic Pept 27 pg/mL (19.9-100)
[2025-05-08 19:57] LABS: D Dimer 0.46 ug/mL (<0.48)
--- NOTE | 2025-05-08 20:12 | ECG_ITS ---
Test Date: 2025-05-08 20:21:53 Measurements Intervals [place] Rate: 109 P: 24 [place]: 159 QRS: 38 QRSD: 102 T: 25 QT: 341 QTc: 460 Interpretive Statements SINUS TACHYCARDIA BORDERLINE ECG Compared to ECG 05/08/2025 16:26:18 HEART HEART HAS DECREASED Electronically Signed On 05-09-2025 06:08:39 CDT by Pollo Bryan D.O.
[2025-05-08] MEDS: BELLADONNA ALK/PHENOB ELIX 10 ML, MAG HYDROX/ALUMINUM HYD/SIMETH 30 ML, LIDOCAINE 2% VI... PO (20:34)
[2025-05-08] MEDS: SODIUM CHLORIDE 0.9% IV 1,000 ML 999 ML IV CONT (20:34)
--- NOTE | 2025-05-08 20:46 | PC.NURSE ---
ok to not give aspirin per edp blas
[2025-05-08 21:02] LABS: Troponin I < 0.012 ng/mL (0.000-0.034)
[2025-05-08 21:16] LABS: Influenza A QL RT-PCR Negative (Negative); Influenza B QL RT-PCR Negative (Negative); RSV RNA, RT-PCR Negative (Negative); SARS-CoV-2 RNA PCR Negative (Negative)
== END 2025-05-08 21:59 | disposition home or self-care (01) ==
PROVIDERS: Physician Assistant; Student in an Organized Health Care Education/Training Program; Emergency Provider Emergency Medicine; PCP Nurse Practitioner Family
DX: R07.9 Chest pain, unspecified (principal); R10.9 Unspecified abdominal pain; I25.10 Atherosclerotic heart disease of native coronary artery without angina pectoris; I10 Essential (primary) hypertension; E78.5 Hyperlipidemia, unspecified; I25.2 Old myocardial infarction; Z95.5 Presence of coronary angioplasty implant and graft; Z20.822 Contact with and (suspected) exposure to COVID-19
CPT/HCPCS: 36415; 71046; 80053; 83690; 83880; 84484; 85025; 85380; 85610; 85730; 87637; 93005; 96360; 99284; A9270; J7030